=== PATIENT | female | born 1970 | race Caucasian/White ===

== ENCOUNTER 2022-12-15 11:00 | Emergency (ER) | payer BC ==
[~2022-12-15] VITALS: Ht 154.9 cm; Wt 74.8 kg
[2022-12-15 11:38] VITALS: BP 122/71
== END 2022-12-15 11:39 | disposition home or self-care (01) ==
LOC: EDH 11:00
DX: M75.41 Impingement syndrome of right shoulder (principal); F32.A Depression, unspecified; Z88.2 Allergy status to sulfonamides